=== PATIENT | female | born 1975 | race Caucasian/White ===

== ENCOUNTER 2021-07-30 08:36 | Emergency (ER) | payer BC ==
[~2021-07-30] VITALS: Ht 177.8 cm; Wt 113.6 kg
[~2021-07-30 08:36] MED LIST: AMIT25TA PO
[2021-07-30 08:46] VITALS: BP 128/68
[2021-07-30] MEDS ORDERED: methylPREDNISolone SOD SUCC PF 125 MG/2 ML VIAL. IM ONE (09:00)
[2021-07-30] MEDS ORDERED: ORPHENADRINE CITRATE 60 MG/2 ML VIAL. IM ONE (09:00)
[2021-07-30] MEDS ORDERED: METH4TAB2 PO (09:00)
[2021-07-30] MEDS ORDERED: CYCL5TAB PO (09:00)
--- NOTE | 2021-07-30 09:08 | PHYS DOC ---
Past History Past Medical History: Fibromyalgia Additional Past Medical Histor: sleep problems, HSV Past Surgical History: No Surgical History Alcohol Use: None Drug Use: None Adult General Chief Complaint Chief Complaint: Neck Pain HPI HPI Patient is a 45 year old female who presents with complaint of left-sided neck pain. The patient states that her pain symptoms have been present over the past 2 to 3 weeks. The patient states that she went to a reading specialist at yesterday. She underwent x-ray imaging which showed narrowing at the left C5/C6 interspace. Patient was diagnosed with cervical radiculopathy and started on gabapentin. Patient has taken 1 dose of gabapentin so far. She states that she woke this morning and 0200 with much worse pain along the left side of the neck radiating into the left shoulder and upper extremity. Notes pain worsens with movement. Denies any recent fall or injury. Review of Systems Review of Systems Constitutional: Denies fever or chills [] Eyes: Denies change in visual acuity, redness, or eye pain [] HENT: Denies nasal congestion or sore throat [] Respiratory: Denies cough or shortness of breath [] Cardiovascular: Denies chest pain or edema [] GI: Denies abdominal pain, nausea, vomiting, bloody stools or diarrhea [] : Denies dysuria or hematuria [] Musculoskeletal: Neck pain [] Integument: Denies rash or skin lesions [] Neurologic: Denies headache, focal weakness or sensory changes [] All other systems were reviewed and found to be within normal limits, except as documented in this note. Current Medications Current Medications Current Medications Medications (Trade) Dose Ordered Sig/Trinity Start Time Stop Time Status Last Admin Dose Admin Methylprednisolone Sodium Succinate (SOLU-Medrol 125MG VIAL) 125 mg 1X ONCE 07/30/21 09:00 07/30/21 09:01 UNV Orphenadrine Citrate (Norflex) 60 mg 1X ONCE 07/30/21 09:00 07/30/21 09:01 UNV Allergies Allergies Allergies Coded Allergies Type Severity Reaction Last Updated Verified Penicillins Allergy Intermediate 02/28/15 Yes Sulfa (Sulfonamide Antibiotics) Allergy Intermediate 02/28/15 No Physical Exam Physical Exam Constitutional: Alert, afebrile, appears in moderate discomfort. [] HENT: Normocephalic, atraumatic, bilateral external ears normal, oropharynx moist, no oral exudates, nose normal. [] Eyes: PERRLA, EOMI, conjunctiva normal, no discharge. [] Neck: Range of motion limited secondary to pain, tenderness to palpation along the left paraspinous musculature extending towards left shoulder in distribution of trapezius muscle, no midline tenderness. [] Cardiovascular:Heart rate regular rhythm, no murmur [] Lungs & Thorax: Bilateral breath sounds clear to auscultation [] Abdomen: Bowel sounds normal, soft, no tenderness, no masses, no pulsatile masses. [] Skin: Warm, dry, no erythema, no rash. [] Back: No tenderness, no CVA tenderness. [] Extremities: No tenderness, no cyanosis, no clubbing, ROM intact, no edema. [] Neurologic: Alert and oriented X 3, normal motor function, normal sensory function, no focal deficits noted. [] Current Patient Data Vital Signs Vital Signs Date Time Temp Pulse Resp B/P (MAP) Pulse Ox O2 Delivery O2 Flow Rate FiO2 07/30/21 08:46 98.0 72 16 128/68 (88) Room Air 93.0 Lab Results None performed EKG EKG Not performed [] Radiology/Procedures Radiology/Procedures Not performed [] Heart Score C/O Chest Pain: No Risk Factors: Risk Factors: DM, Current or recent (<one month) smoker, HTN, HLP, family history of CAD, obesity. Risk Scores: Risk Factors: DM, Current or recent (<one month) smoker, HTN, HLP, family history of CAD, obesity. Course & Med Decision Making Course & Med Decision Making Pertinent Labs and Imaging studies reviewed. (See chart for details) Patient ministered IM Solu-Medrol, IM Norflex, and oral [place] in the emergency department for treatment of pain symptoms. Prescribed Medrol and cyclobenzaprine to take in addition to prescribed gabapentin from patient's spine doctor. Recommend close follow-up in the next 3 to 5 days with reading specialist for reevaluation if symptoms are not improving and return to the emergency department for any worsening symptoms. Patient voiced understanding and in agreement with treatment plan. [] Dragon Disclaimer Dragon Disclaimer This electronic medical record was generated, in whole or in part, using a voice recognition dictation system. Departure Departure: Impression: Primary Impression: Cervical radiculopathy Disposition: HOME / SELF CARE / HOMELESS Condition: STABLE Referrals: PCP,NO (PCP) Patient Instructions: Cervical Radiculopathy Additional Instructions: Return to the emergency department for any worsening symptoms. Scripts Methylprednisolone (MEDROL) 4 Mg Tab.ds.pk 1 PKG PO UD, #1 PKG Prov: BUCK ABBOTT MD 07/30/21 Cyclobenzaprine Hcl (CYCLOBENZAPRINE HCL) 5 Mg Tablet 1 TAB PO TID, #30 TAB Prov: BUCK ABBOTT MD 07/30/21 BUCK ABBOTT MD July 30, 2021 09:08
[2021-07-30] MEDS ORDERED: HYDROcodone/APAP 5/325MG 1 TAB TABLET PO ONE (09:30)
== END 2021-07-30 09:39 | disposition home or self-care (01) ==
LOC: ER 08:36
DX: M54.12 Radiculopathy, cervical region (principal); M79.7 Fibromyalgia; Z88.0 Allergy status to penicillin; Z88.2 Allergy status to sulfonamides
CPT/HCPCS: 96372; 99284; J2360; J2930